=== PATIENT | male | born 1945 | race Caucasian/White ===

== ENCOUNTER → 2025-05-21 09:36 | Outpatient (BNVA) | payer MEDICARE, OTHER, SELFPAY | PROVIDERS: Family Provider Nurse Practitioner Family; Visit Provider Nurse Practitioner Family | DX: L73.8 Other specified follicular disorders (principal); L82.1 Other seborrheic keratosis; L57.8 Other skin changes due to chronic exposure to nonionizing radiation; X32.XXXA Exposure to sunlight, initial encounter; D18.01 Hemangioma of skin and subcutaneous tissue; L81.4 Other melanin hyperpigmentation; L91.8 Other hypertrophic disorders of the skin; D48.5 Neoplasm of uncertain behavior of skin; L82.0 Inflamed seborrheic keratosis; L53.8 Other specified erythematous conditions; R20.8 Other disturbances of skin sensation; H53.452 Other localized visual field defect, left eye | CPT/HCPCS: 11104; 17000; 17110; 69100; 99203 ==